=== PATIENT | female | born 1970 | race Caucasian/White ===

== ENCOUNTER → 2022-06-24 10:39 | Outpatient (BNVA) | payer OTHER, SELFPAY | PROVIDERS: Family Provider Obstetrics & Gynecology; PCP Obstetrics & Gynecology; Visit Provider Nurse Practitioner Family | DX: I10 Essential (primary) hypertension (principal); F41.9 Anxiety disorder, unspecified | CPT/HCPCS: 80053; 80061; 84443 ==

== ENCOUNTER → 2022-09-24 09:21 | Outpatient (BNVA) | payer OTHER, SELFPAY | PROVIDERS: Family Provider Obstetrics & Gynecology; PCP Nurse Practitioner Family; Visit Provider Nurse Practitioner Family | DX: E78.5 Hyperlipidemia, unspecified (principal) | CPT/HCPCS: 80053; 80061 ==

== ENCOUNTER → 2024-04-21 10:12 | Outpatient (BNVA) | payer OTHER, SELFPAY | PROVIDERS: Family Provider Obstetrics & Gynecology; PCP Nurse Practitioner Family; Referring Provider Registered Nurse; Visit Provider Psychiatry & Neurology Neurology | DX: R41.3 Other amnesia (principal); F33.2 Major depressive disorder, recurrent severe without psychotic features; R51.9 Headache, unspecified | CPT/HCPCS: 36415; 82542; 83735; 86592 ==

== ENCOUNTER 2024-05-17 14:25 | Outpatient (CLI) | payer OTHER, MEDICAID, SELFPAY ==
--- NOTE | 2024-05-17 14:30 | USCV_ITS ---
Vickie Ray Age: 53 Gender: F : 1970 Exam Date: 05/17/2024 14:39 Ordering Phys: Farrukh Peters MD Technologist: KERLINE Exam Location: [facility] [place] Indication: Memory Loss Risk Factors: Previous Vascular Surgery: Right Brachial BP: / Left Brachial BP: / Right Left Velocity (cm/s) Spectral Plaque Velocity (cm/s) Spectral Plaque Syst/Diast Broadening Syst/Diast Broadening 86.70/ 19.30 Prox CCA 89.20 / 23.40 90.60/ 23.20 Mid CCA 91.30 / 21.60 69.80/ 20.60 Distal CCA 86.90 / 21.60 62.80/ 17.50 Prox ICA 57.50 / 17.00 68.30/ 23.10 Mid ICA 64.10 / 18.10 72.00/ 26.80 Distal ICA 66.40 / 25.30 103.50 ECA 98.90 1.00 ICA/CCA 0.80 Antegrade Vertebral Antegrade 41.10/ 14.40 cm/s 43.80/ 16.20 cm/s Tri Subclavian Tri 122.1 79.90 0 FINDINGS Comparison: none available. No significant elevation of systolic or diastolic velocities. Waveforms are normal. No significant amount of calcified plaque or intimal thickening identified. Minimal bilateral, atherosclerosis with no elevation of velocity. CONCLUSIONS Bilateral ICA stenosis less than 50%. Dr. Darlin Barbosa DO (Electronically Signed) Final Date: 17 May 2024 16:15 S
== END 2024-05-17 14:26 | disposition home or self-care (01) ==
LOC: RAD 14:29
PROVIDERS: Family Provider Obstetrics & Gynecology; PCP Registered Nurse; Visit Provider Psychiatry & Neurology Neurology
DX: R41.3 Other amnesia (principal)
CPT/HCPCS: 93880

== ENCOUNTER 2024-05-20 15:15 | Outpatient (CLI) | payer OTHER, MEDICAID, SELFPAY ==
--- NOTE | 2024-05-20 15:36 | CT_ITS ---
WS: [id number] CT SINUSES TECHNIQUE: Noncontrast CT of the paranasal sinuses with coronal and sagittal reformatted images. CLINICAL INFORMATION: CHRONIC PANSINUSITIS COMPARISON: None. DLP: 351.[address] scans at [facility] use at least one of these dose optimization techniques: automated e xposure control; mA and/or kV adjustment per patient size (includes targeted exams where dose is matc hed to clinical indication); or iterative reconstruction. FINDINGS: Mild LEFT to RIGHT nasal septal deviation measuring 2 mm. Ostiomeatal units are patent. Small LEFT co ncha bullosa. Mucosal thickening RIGHT maxillary sinus measuring 5 mm. Small retention cyst infraorbi romeo RIGHT maxillary sinus measuring 8.3 x 14.8 mm. Slight fluid and secretions in the LEFT greater th an RIGHT frontoethmoidal recesses compatible with sinusitis. Evidence of prior maxillary antrostomies with uncinectomies and bilateral ethmoidectomies. Mild mucosal thickening in the ethmoid air cells. Sphenoid sinuses are well aerated with mild mucosal thickening along the ostia with mild narrowing. T race mucosal thickening in the sphenoid sinus. Mastoid air cells are well aerated. Normal posterior nasopharynx. Normal parapharyngeal fat. Partiall y visualized intracranial contents appear unremarkable. CT/CT sinus wo con* [id number] IMPRESSION: 1. Mild LEFT to RIGHT nasal deviation measuring 2 mm. 2. 5 mm mucosal thickening RIGHT maxillary sinus. 3. Small infraorbital RIGHT retention cyst measuring 8.3 x 14.8 mm. 4. No surgical history reported but suspected prior bilateral maxillary antro stomies with uncinectomies and ethmoidectomies. 5. Small amount of frothy secretions in the frontoethmoidal recesses compatibl e with sinusitis LEFT greater than RIGHT. 6. LEFT kerry bullosa. 7. Mastoid air cells are well aerated.
== END 2024-05-20 15:33 | disposition home or self-care (01) ==
PROVIDERS: PCP Registered Nurse; Visit Provider Registered Nurse
DX: J32.4 Chronic pansinusitis (principal); J34.2 Deviated nasal septum; J34.89 Other specified disorders of nose and nasal sinuses; H05.811 Cyst of right orbit
CPT/HCPCS: 70486

== ENCOUNTER 2024-06-17 11:07 | Outpatient (CLI) | payer OTHER, SELFPAY ==
--- NOTE | 2024-06-17 11:00 | MR_ITS ---
WS: [id number] MRI BRAIN WITH AND WITHOUT CONTRAST HISTORY: R41.3 - Other amnesia COMPARISON: None available. TECHNIQUE: Multiplanar imaging performed through the brain with MultiHance 15 ml's IV. No acute infarcts are seen. Brito-white matter differentiation is well preserved. Normal hippocampal f ormations. No susceptibility artifacts or prior lacunar infarcts. Ventricles and extra-axial spaces are normal. Clivus and pituitary gland are normal. Visualized posterior fossa and brainstem are also normal. Postcontrast images are negative for masses or vascular malformations. Dural venous sinuses are normal. Paranasal sinuses: Mucoperiosteal thickening with mild enhancement in the maxillary ethmoid and front al sinuses. No air-fluid levels. Mastoid air cells: Normal. Calvarium and scalp: Normal. MR/MR head wo/w con [id number] IMPRESSION: 1. No acute infarct or hemorrhage. 2. Normal hippocampal formations. 3. No significant volume loss. 4. Normal postcontrast imaging. 5. Mild mucoperiosteal paranasal sinus disease. No air-fluid levels.
[2024-06-17] MEDS: gadobenate dimeglumine 20 mL vial 15 ML IV (11:48)
== END 2024-06-17 11:08 | disposition home or self-care (01) ==
LOC: RAD 11:08
PROVIDERS: Family Provider Obstetrics & Gynecology; PCP Nurse Practitioner Family; Visit Provider Psychiatry & Neurology Neurology
DX: R41.3 Other amnesia (principal)
CPT/HCPCS: 70553

== ENCOUNTER → 2025-03-08 16:59 | Outpatient (BNVA) | payer OTHER, MEDICAID, SELFPAY | PROVIDERS: Family Provider Obstetrics & Gynecology; PCP Nurse Practitioner Family; Visit Provider Psychiatry & Neurology Neurology | DX: E55.9 Vitamin D deficiency, unspecified (principal); R41.840 Attention and concentration deficit; R55 Syncope and collapse; R29.6 Repeated falls; R29.818 Other symptoms and signs involving the nervous system | CPT/HCPCS: 36415; 80053; 82233; 82234; 82306; 83520; 84439; 84443; 85025 ==

== ENCOUNTER 2025-04-26 20:00 | Outpatient (CLI) | payer OTHER, MEDICAID, SELFPAY | END 2025-04-26 20:01 | disposition home or self-care (01) | LOC: SLEEP 04-27 05:18 | PROVIDERS: Family Provider Obstetrics & Gynecology; PCP Nurse Practitioner Family; Referring Provider Specialist; Visit Provider Internal Medicine Pulmonary Disease | DX: G47.00 Insomnia, unspecified (principal) | CPT/HCPCS: 95810 ==